=== PATIENT | female | born 1985 | race Caucasian/White ===

== ENCOUNTER 2017-03-07 01:00 | Inpatient (IN) | payer OTHER ==
[2017-03-07 05:05] LABS: Hematocrit 32 % (35-47); Hemoglobin 10.3 g/dl (12.0-16.0); Mean Corpuscular HGB Conc 32 g/dl (31-36); Mean Corpuscular Hemoglobin 27 pg (27-31); Mean Corpuscular Volume 85 fL (80-97); Mean Platelet Volume 9 um3 (7.4-10.4); Red Blood Count 3.76 10^6/ul (4.0-5.4); Red Cell Distribution Width 15 % (10.5-15); White Blood Count 12.9 10^3/ul (3.5-10.8)
[2017-03-07] MEDS ORDERED: fentaNYL* 50 MCG/ML 2 ML VIAL (100 MCG VIAL) ONE (05:11)
[2017-03-07] MEDS ORDERED: Sodium Citrate/Citric Acid* 15 ML UDC ONE (05:33)
[2017-03-07] MEDS ORDERED: Famotidine TAB* 20 MG PO PRN (05:39)
[2017-03-07] MEDS ORDERED: Sodium Citrate/Citric Acid* 15 ML UDC PO PRN (05:39)
[2017-03-07] MEDS ORDERED: Phenylephrine IV* 40 MCG/ML 10 ML SYRINGE IV PUSH PRN ×2 (05:39)
[2017-03-07] MEDS ORDERED: Acetaminophen TAB* 325 MG PO PRN (07:49)
[2017-03-07] MEDS ORDERED: Glycerin ADULT SUPP PR PRN (07:49)
[2017-03-07] MEDS ORDERED: Simethicone CHEW TAB* 80 MG PO SCH (08:30)
[2017-03-07] MEDS: Ibuprofen TAB* 600 MG PO PRN ×2 (08:55→21:04)
[2017-03-07] MEDS: Dibucaine 1% 28.35 GM TUBE PR PRN (08:56)
[2017-03-07] MEDS: Witch Hazel PAD* JAR TOPICAL PRN (08:56)
[2017-03-07] MEDS: Docusate CAP* 100 MG PO SCH ×2 (15:02→21:05)
[2017-03-08] MEDS: Docusate CAP* 100 MG PO SCH ×3 (00:24→14:13)
[2017-03-08] MEDS: Ibuprofen TAB* 600 MG PO PRN ×2 (03:39→14:11)
[2017-03-08] MEDS: Cetirizine* 10 MG TAB PO SCH ×2 (06:44→09:02)
[2017-03-08 07:28] LABS: Hematocrit 26 % (35-47); Hemoglobin 8.8 g/dl (12.0-16.0); Mean Corpuscular HGB Conc 34 g/dl (31-36); Mean Corpuscular Hemoglobin 29 pg (27-31); Mean Corpuscular Volume 85 fL (80-97); Mean Platelet Volume 9 um3 (7.4-10.4); Red Blood Count 3.04 10^6/ul (4.0-5.4); Red Cell Distribution Width 15 % (10.5-15); White Blood Count 10.4 10^3/ul (3.5-10.8)
[2017-03-08 08:43] VITALS: BP 93/50
[2017-03-08] MEDS: Witch Hazel PAD* JAR TOPICAL PRN (08:59)
[2017-03-08] MEDS: Dibucaine 1% 28.35 GM TUBE PR PRN (08:59)
[2017-03-08] MEDS ORDERED: Ferrous Gluconate TAB* 324 MG TAB PO SCH (09:00)
== END 2017-03-08 17:06 | disposition home or self-care (01) | DRG 775 ==
LOC: MCHOBOUT 01:00 → MCHOB 01:18
PROVIDERS: ADMIT Midwife; ATTEND Midwife
PROC: 10E0XZZ Delivery of Products of Conception, External Approach (ICD-10-PCS; principal; 2017-03-07)
PROC: 0KQM0ZZ Repair Perineum Muscle, Open Approach (ICD-10-PCS; 2017-03-07)
PROC: 10907ZC Drainage of Amniotic Fluid, Therapeutic from Products of Conception, Via Natural or Artificial Opening (ICD-10-PCS; 2017-03-07)
DX: O99.824 Streptococcus B carrier state complicating childbirth (principal); D64.9 Anemia, unspecified; O77.0 Labor and delivery complicated by meconium in amniotic fluid; O70.1 Second degree perineal laceration during delivery; O90.81 Anemia of the puerperium; Z3A.39 39 weeks gestation of pregnancy; Z37.0 Single live birth
CPT/HCPCS: 36415; 85025; 86850; 86900; 86901; A9270-GY; J3010

== ENCOUNTER 2017-07-24 11:17 | Emergency (ER) | payer BC, OTHER ==
[2017-07-24 11:29] VITALS: BP 130/106
--- NOTE | 2017-07-24 11:47 | UC ---
Complaint Female HPI - HPI Summary HPI Summary: Pt presents with pelvic pain. She tells me that she had an IUD placed 4 days ago and that her OBGYN had a difficult time placing it. She has had an IUD in the past without issues, but had it removed about a 1-1.5 years ago as she desired to become . She was successful in this and gave 4 months ago. Today, she is having LLQ pain "it feels like my ovary" and left lower back pain 05/18 which began abruptly about 45 minutes before her coming to urgent care. She has not had any fevers, chills, N/V/D/C, SOB, chest pain, dysuria, vaginal bleeding or pain, or recent illness. She called her OBGYN and spoke to the steeple jack who suggested it could be from the recent IUD insertion, but should be evaluated today regardless - per pt. - History Of Current Complaint Chief Complaint: UCGU Stated Complaint: PERSONAL Time Seen by Provider: 07/24/17 11:46 Hx Obtained From: Patient, Family/Community Development Manager Onset/Duration: Sudden Onset Timing: Constant Severity Currently: Severe Pain Intensity: 10 Pain Scale Used: 0-10 Numeric Character: Sharp, Cramping Aggravating Factor(s): Movement Alleviating Factor(s): Position, Nothing - Allergies/Home Medications Allergies/Adverse Reactions: Allergies Allergy/AdvReac Type Severity Reaction Status Date / Time Banana Allergy mouth Verified 07/24/17 11:29 swelling Kiwi Extract Allergy mouth and Verified 07/24/17 11:29 throat swelling [place] Flavor Allergy mouth and Verified 07/24/17 11:29 throat swelling Pineapple Allergy mouth Verified 07/24/17 11:29 swelling throat swelling Red Dye Allergy mouth and Verified 07/24/17 11:29 throat swelling [place] Allergy mouth Verified 07/24/17 11:29 swelling throat swelling Tomato Allergy mouth Verified 07/24/17 11:29 swelling and throat swelling Home Medications: Home Medications Albuterol HFA INHALER* [Ventolin HFA Inhaler*] 2 puff INH Q4H PRN 07/24/17 [ History Confirmed 07/24/17] PMH/Surg Hx/FS Hx/Imm Hx Previously Healthy: Yes - Surgical History Surgical History: None - Family History Known Family History: Negative: Other - LAXITY OF JOINT - Social History Occupation: Employed Full-time Lives: With Family Alcohol Use: Occasionally Substance Use Type: None Smoking Status (MU): Never Smoked Tobacco - Immunization History Most Recent Influenza Vaccination: 2017 Most Recent Pneumonia Vaccination: never Review of Systems Constitutional: Negative Skin: Negative Respiratory: Negative Cardiovascular: Negative Gastrointestinal: Abdominal Pain - LLQ Neurovascular: Negative Musculoskeletal: Other: - Left lower back pain Neurological: Negative Psychological: Negative All Other Systems Reviewed And Are Negative: Yes Physical Exam Triage Information Reviewed: Yes Appearance: Pain Distress, Other: - Lying on her side in the position, clutching her lower abdomen. Vital Signs: Initial Vital Signs Temp 98.3 F 07/24/17 11:26 Pulse 97 07/24/17 11:26 Resp 24 07/24/17 11:26 BP 130/106 07/24/17 11:26 Pulse Ox 100 07/24/17 11:26 Vital Signs Reviewed: Yes Respiratory: Positive: Chest non-tender, Lungs clear, Normal breath sounds, No respiratory distress, No accessory muscle use Cardiovascular: Positive: No Murmur, Pulses Normal, Brisk Capillary Refill, Tachycardia Abdomen Description: Positive: No Organomegaly, Guarding - LLQ, Other: - TTP LLQ. No mass is appreciated. No ron's sign.. Negative: CVA Tenderness (R), CVA Tenderness (L), Distended, McBurney's Point Tenderness, Peritoneal Signs, Pulsatile Mass Bowel Sounds: Positive: Present Skin: Negative: rashes - Additional Comments She was placed in the lithotomy position in preparation for a vaginal exam - this caused her significant pain. Patient did not think she could tolerate a vaginal exam due to pain. Complaint Female Dx - Course Course Of Treatment: Abrupt onset LLQ pain, tachycardia, and elevated BP. I presented the case to Dr. Roblero and we agreed that she needs to be evaluated in the ED. I discussed this with the patient and her , they agreed to be transferred by ambulance. - Differential Dx/Diagnosis Differential Diagnosis/HQI/PQRI: Cervicitis, Ectopic, Ovarian Cyst, Ovarian Torsion, Pelvic Inflammatory Disease, Renal Colic, Retained Foreign Body, Tubo- ovarian Abscess, Ureteral Stone, Urinary Tract Infection Provider Diagnoses: LLQ pain. Elevated blood pressure. Tachycardia Discharge - Discharge Plan Condition: Stable Disposition: [facility]ANS [facility] Referrals: Rojas Keene MD [Primary Care Provider] - Additional Instructions[place] [facility] [place]
[2017-07-24] MEDS ORDERED: HYDROcodone/ACETAMIN 5-325 MG* 1 TAB PO ONE (11:58)
--- OUTSIDE RECORDS SUMMARY | 2017-07-26 10:14 | XMS REPORT ---
:1985 External Reference #:[id number] Author Organization [facility] Address [address] [place] [address] Phone [phone] Care Team Providers Name Role Phone Charanjit Grant M.D. Primary Care Physician Unavailable Payers Type Date Identification Numbers Payment Provider Subscriber Commercial Expires: Policy Number: [employer] Ppo Jie 2017 [id number] [facility] PayID: [id number] [address] [place] [address] Medigap Part B Policy Number: Excellus BC/BS Jie Lemossita [id number] [facility] PayID: [id number] [address] [address] [place] [address] Problems Date Description Provider Status Onset: 08/12/2016 Multigravida Anila Tracy NP Resolved Resolved: 03/07/2017 Family History Date Family Member(s) Problem(s) Comments Father A&W Mother A&W Children 3 First Son A&W Second Son A&W Third Son A&W First Brother Crohn's Disease Second Brother A&W First Sister A&W Second Sister A&W Paternal Grandfather due to Old Age () Paternal Grandmother due to Lung Cancer () Maternal Grandfather due to Old Age () Maternal Grandmother due to Old Age () Social History Type Date Description Comments Education Highest level completed, Bachelor's Degree Marital Status Lives With Spouse Lives With Sons Pets 2 dogs 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 Cigarette Use Never Smoked Cigarettes ETOH Use Occasionally consumes alcohol Smoking Patient has never smoked Recreational Drug Use Denies Drug Use Daily Caffeine occ coffee Exercise Type/Frequency Exercises regularly Seat Belt/Car Seat Always uses seat belt Currently Active Patient is currently sexually active Contraceptive Methods None STD's No STD History Allergies, Adverse Reactions, Alerts Date Description Reaction Status Severity Comments 10/13/2016 NKDA active 04/27/2016 Red Dye active Medications Medication Date Status Form Strength Qnty SIG Indications Ordering Provider Mirena (52 07/21/ Active IUD 20mcg/24H Phaelon MG) 2016 Adwoa Keene MD -12 00/ Active Unknown 0000 Albuterol / Active Unknown Sulfate 0000 Zyrtec / Active Tablets 10mg 1 by mouth Unknown Allergy 0000 every day Lidocaine 02/18/ Hx Ointment 5% 30gm apply to Renay 2016 - affected Garcia, 06/23/ area as [facility] 2016 needed Anusol-HC 02/17/ Hx Suppository 25mg 14uni 1 per rectum Renay 2016 - ts bid Jose, 06/23/ [facility] 2017 Anusol-HC 12/17/ Hx Suppository 25mg 12uni 1 Phillip 2016 - ts suppository Taty, 12/30/ inserted at [facility] 2017 night, 1 in am for maximum of 2 weeks Terconazole 08/12/ Hx Cream 0.8% 20g use 1 Luis A Ceja 2016 - vaginal Gelber, 09/08/ applicator Bashir 2017 every night at bedtime x 3 days 00/00/ Hx Tablets 28-0.8mg 1 by mouth Unknown Vitamins 0000 - every day. 06/23/ please 2017 substitute any vitamin with 100-300 mcg dha covered by insurance Claritin 00/00/ Hx Unknown 0000 - 2016 Iron (Ferrous /00/ Hx Unknown Gluconate) 0000 - 2016 Nasal Allergy 00/00/ Hx Unknown 24 Hour 0000 - 2016 Immunizations CPT Code Status Date Vaccine Lot # [id number] Given 12/16/2016 Tetnus, Diptheria Toxoids And Acellular Pertussis, [id number] PT > 7Yrs Old Vital Signs Date Vital Result Comment 07/21/2017 BP Systolic 108 mmHg BP Diastolic 72 mmHg Height 66.5 inches 5'6.50" Weight 147.00 lb BMI (Body Mass Index) 23.4 kg/m2 3 Parity 3 06/23/2017 BP Systolic 108 mmHg BP Diastolic 64 mmHg Height 66.50 inches 5'6.50" Weight 151.00 lb BMI (Body Mass Index) 24.0 kg/m2 Last Menstrual Period [id number] 3 Parity 3 08/12/2016 BP Systolic 106 mmHg BP Diastolic 64 mmHg Height 66.50 inches 5'6.50" Weight 154.00 lb BMI (Body Mass Index) 24.5 kg/m2 Last Menstrual Period [id number] 3 Parity 2 04/27/2016 BP Systolic 110 mmHg BP Diastolic 62 mmHg Height 66.50 inches 5'6.50" Weight 146.00 lb BMI (Body Mass Index) 23.2 kg/m2 Last Menstrual Period [id number] 2 Parity 2 Results Test Date Test Result H/L Range Note Laboratory test 02/10/2017 Genital For GRP B SEE RESULT BELOW 1 finding Strep Only Laboratory test 12/16/2016 Glucose 1 HR Post 110 mg/dL 70-160 2 finding Prandial CBC With No Diff 12/16/2016 White Blood Count 8.8 10^3/uL 3.5-10.8 Red Blood Count 3.16 10^6/uL Low 4.0-5.4 Hemoglobin 9.9 g/dL Low 12.0-16.0 Hematocrit 30 % Low 35-47 Mean Corpuscular Volume 93 fL 80-97 Mean Corpuscular Hemoglobin 31 pg 27-31 Mean Corpuscular HGB Conc 34 g/dL 31-36 Red Cell Distribution Width 13 % 10.5-15 Platelet Count 245 10^3/uL 150-450 Mean Platelet Volume 9 um3 7.4-10.4 GC/Chlamydia Dna Probe 08/12/2016 Chlamydia trachomatis Rna Negative Negative Neisseria gonorrhoeae (GC) Rna Negative Negative PNL No Urine 08/12/2016 Rubella Screen Immune IU/mL Immune 3 Hemoglobin A1c 4.5 % Less than 6.0 4 Hepatitis B Surface Ag Nonreactive Nonreactive 5 Syphillis Igg W/Reflex RPR Nonreactive Nonreactive 6 CBC With No Diff 08/12/2016 White Blood Count 6.5 10^3/uL 3.5-10.8 Red Blood Count 3.73 10^6/uL Low 4.0-5.4 Hemoglobin 11.9 g/dL Low 12.0-16.0 Hematocrit 35 % 35-47 Mean Corpuscular Volume 94 fL 80-97 Mean Corpuscular Hemoglobin 32 pg High 27-31 Mean Corpuscular HGB Conc 34 g/dL 31-36 Red Cell Distribution Width 13 % 10.5-15 Platelet Count 293 10^3/uL 150-450 Mean Platelet Volume 8 um3 7.4-10.4 Type And Screen 08/12/2016 Patient Blood Type O Positive Antibody Screen NEGATIVE HIV 1/2 AB Evaluation 08/12/2016 HIV 1 2 Antibody Nonreactive Nonreactive 7 Lead 08/12/2016 Lead <1.0 g/dL 0.0-4.9 8 Urine Culture And 08/12/2016 Urine Culture SEE RESULT BELOW 9 Sensitivities Laboratory test 04/27/2016 Cytology SEE RESULT BELOW 10 finding Human Papilloma Virus Rna Negative Negative 11 1 SEE RESULT BELOW Name: JIE MANUEL : [address]: Tiara Garcia CNM Acct: [id number] Unit: [id number] AGE: 31 Location: [facility] Re02/10/17 SEX: F Status: REG REF SPEC: [id number] VÍCTOR: 02/10/[address]: Tiara Garcia CNM REQ: [id number] RECD: 02/10/17 STATUS: COMP _ SOURCE: CER/VAG/RE SPDESC: ORDERED: Grp B Strp Scrn COMMENTS: [id number] QUERIES: Is Patient Penicillin Allergic? N Is patient penicillin allergic and/or sensitivities needed? N Provider Requisition # [id number] Procedure Result Reported Site Group B Strep Culture Screen Final 02/12/17- 1452 ML Group B Strep Screen Negative Organism 1 STREP PYOGENES (GRP A) * ML - MAIN LAB ([facility]) . END OF REPORT * ML=Testing performed at Main Lab DEPARTMENT OF PATHOLOGY, [address] [place] [address] Farhat Valentin M.D. Director [facility] # [id number] 2 [id number] 4 Therapeutic target for the treatment of diabetes Mellitus patients is <7% HBA1C, and in selective patients <6.0%.Please refer to [place] [employer] Association Diabetic care guidelines for further information. 5 [id number] 6 Warning: A positive result is not useful for establishing a diagnosis of syphilis. In most situations, such a result may reflect a prior treated infection; a negative result can exclude a diagnosis of syphilis except for incubating or early primary disease. 7 It is recognized that currently available assays for the detection of antibodies to HIV-1 and/or HIV-2 may not detect all infected individuals. HIV antibodies may be undetectable in some stages of the infection and in some clinical conditions. The performance of this assay has not been established for populations of infants or children. Assayed by Chemiluminescence Microparticle Immunoassay on the Siemens Advia Centaur CP. Values obtained with different methods or kits cannot be used interchangeably.The diagnostic specificity of the ADVIA Centaur 1/O/2 Enhanced assay in the low risk population was 99.90% (6052/6058) with a 95% confidence interval of 99.78 to 99.96%. 8 ADDITIONAL INFORMATION Testing performed by Inductively Coupled Plasma-Mass Spectrometry (ICP-MS). This test was developed and its performance characteristics determined by [facility] in a manner consistent with CLIA requirements. This test has not been cleared or approved by the U.S. Food and Drug Administration. 9 SEE RESULT BELOW Name: RICK MANUELINA : [address]: Anila Tracy NP Acct: [id number] Unit: [id number] AGE: 31 Location: [facility] Re08/12/16 SEX: F Status: REG REF SPEC: [id number] VÍCTOR: 08/12/161007 SUBM DR: Anila Tracy NP REQ: [id number] RECD: 08/12/16 STATUS: COMP _ SOURCE: URINE SPDESC: ORDERED: Urine Culture COMMENTS: [id number] Urine Source: Random Procedure Result Reported Site Urine Culture Final 08/13/16- 1602 ML No Growth (<1,000 CFU/mL) * ML - MAIN LAB ([facility]) . END OF REPORT * ML=Testing performed at Main Lab DEPARTMENT OF PATHOLOGY, [address] [place] [address] Farhat Valentin M.D. Director [facility] # [id number] 10 SEE RESULT BELOW Name: JIE MANUEL : [address]: Anila Tracy NP Acct: [id number] Unit: [id number] AGE: 30 Location: [facility] Re04/27/16 SEX: F Status: REG REF SPEC: [id number] VÍCTOR: 04/27/16-[address]: Anila Tracy NP REQ: [id number] RECD: 04/27/16 STATUS: SOUT _ ORDERED: IMAGE ANALYSIS, HPV/Thin Prep COMMENTS: [id number] FINAL DIAGNOSIS Negative for Intraepithelial lesion or Malignancy A. Ectocervical/Endocervical Specimen Adequacy: Satisfactory of evaluation Transformation zone component identified Patient Information: HPV: High risk HPV RNA testing regardless of pap results. Actual Specimen Date: 04/27/16 Last Menstrual Date: 04/04/16 ?: N Date Time Test Result Flag (u) Normal Range 04/27/16 1313 HPV RNA Negative Negative The high-risk HPV types detected by the assay include: 16, 18, 31, 33, 35, 39, 45, 51, 52, 56, 58, 59, 66, and 68. Signed (signature on file) DANNY Morley(ASCP) 04/28 1353 This Pap test was evaluated with the assistance of the Yaolan.comPrep Test Imaging System. Due to cytologic findings at the day care home mother microscope, comprehensive manual rescreening by a Bass Guitar Teacher may be required. The Pap Smear is a screening test designed to aid in the detection of premalignant and malignant conditions of the uterine cervix. It is not a diagnostic procedure and should not be used as the sole means of detecting cervical cancer. Both false- positive and false- negative reports do occur. Depending on your risk status, a Pap smear should be obtained and evaluated every 1-3 years. END OF REPORT * ML=Testing performed at Main Lab DEPARTMENT OF PATHOLOGY, [address] [place] [address] Farhat Valentin M.D. Director [facility] # [id number] 11 The high-risk HPV types detected by the assay include: 16, 18, 31, 33, 35, 39, 45, 51, 52, 56, 58, 59, 66, and 68. Procedures Date CPT Code Description Status 07/21/2017 64234 Insert Intrauterine Device Completed 03/07/2017 12352 Obstetric Care Routine Completed 02/10/2017 55072 Echography Uterus Limited Completed 10/23/2016 34507 Echography Uterus Complete Completed 08/12/2016 62395 OB Ultrasound First Trimester Completed Encounters Type Date Location Provider CPT E/M Dx Office Visit 06/23/2017 9:00a [facility] JAMES Christian [address] Z01.419 Office Visit 04/27/2016 1:00p [facility] [place] [address] Z01.419 Plan of Care No Information Available
== END 2017-07-24 12:28 | disposition short-term general hospital (02) ==
LOC: UCEAST 11:17
DX: R10.32 Left lower quadrant pain (principal); R03.0 Elevated blood-pressure reading, without diagnosis of hypertension; R00.0 Tachycardia, unspecified
CPT/HCPCS: 99213; G0463

== ENCOUNTER → 2017-07-24 12:45 | Emergency (ER) | payer BC ==
[~2017-07-24 12:45] MED LIST: Acetaminophen TAB* 325 MG PO ONE; Amoxicillin PO (*) 250 MG CAP PO ONE; Amoxicillin/Clavulanate TAB* 500 MG PO ONE; Ketorolac INJ* 30 MG/ML 1 ML VIAL IV PUSH ONE; Morphine INJ* 4 MG/ML 1 ML CARPUJECT IV ONE; Naproxen TAB* 250 MG ONE; Naproxen TAB* 250 MG PO ONE; Ondansetron INJ* 2 MG/ML VIAL IV ONE; Tamsulosin CAP* 0.4 MG PO ONE; oxyCODONE/Acetamin 5/325 MG* TAB PO ONE
--- NOTE | 2017-07-24 13:38 | ED ---
Abdominal Pain/Female - HPI Summary HPI Summary: Pt here w/ abrupt onset low back pain B/L but worse on Lt, ab pain B/L but worse on Lt and urethral pain - nausea intermittently - no vomiting. Had IUD placed 4 days ago. Per pt, OBGYN had difficulty placing IUD and required multiple attempts before successful placement. She's had pain that feels like "menstrual cramping" since and has been taking 400mg ibuprofen each day which has helped but did not help today. She's had normal vaginal d/c for her since - no bleeding. Mild discomfort with urination and urge w/ minimal output. H/o UTI once in the past - only similar sx are urethral pain, everything else is different. This morning, pain feels similar in quality and location to what she 's been feeling since IUD placement but much worse intensity. NOTE: Pt dx'd w/ group A strep vaginally around time of delivering child - she currently 4 months post . Has not received anbx as per OBGYN it was not necessary - monitoring was the recommended course of action. Again, no fever but had chills today. She is . - History of Current Complaint Chief Complaint: EDAbdPain Stated Complaint: ABD PAIN SENT FROM [facility] Time Seen by Provider: 07/24/17 13:19 Hx Obtained From: Patient, Family/Supervisor [employer] - Pain Intensity: 9 Allergies/Adverse Reactions: Allergies Allergy/AdvReac Type Severity Reaction Status Date / Time Banana Allergy mouth Verified 07/24/17 11:29 swelling Kiwi Extract Allergy mouth and Verified 07/24/17 11:29 throat swelling [place] Flavor Allergy mouth and Verified 07/24/17 11:29 throat swelling Pineapple Allergy mouth Verified 07/24/17 11:29 swelling throat swelling Red Dye Allergy mouth and Verified 07/24/17 11:29 throat swelling [place] Allergy mouth Verified 07/24/17 11:29 swelling throat swelling Tomato Allergy mouth Verified 07/24/17 11:29 swelling and throat swelling Home Medications: Home Medications Cetirizine* [ZyrTEC 10 MG TAB*] 1 tab PO BEDTIME 07/24/17 [History Confirmed ] PMH/Surg Hx/FS Hx/Imm Hx Previously Healthy: Yes Endocrine/Hematology History: Reports: Hx Blood Disorders - ITP Respiratory History: Reports: Hx Asthma History: Reports: Other Problems/Disorders - IUD placed (mirena) on 2016 by ? - Immunization History Immunizations Up to Date: Yes Infectious Disease History: No Infectious Disease History: Denies: Traveled Outside the [place] in Last 30 Days - Family History Known Family History: Positive: Other - recent h/o family members w/ strep - rectally, penile and skin - Social History Lives: With Family Alcohol Use: Occasionally Alcohol Amount: last night 1/2 bottle of hard cider Hx Substance Use: No Substance Use Type: Reports: None Hx Tobacco Use: No Smoking Status (MU): Never Smoked Tobacco Review of Systems Positive: Chills. Negative: Fever Cardiovascular: Negative Negative: Palpitations, Chest Pain Respiratory: Negative Negative: Shortness Of Breath, Cough Positive: Abdominal Pain, Nausea, Other - has had constipation . Negative: Vomiting, Diarrhea Positive: see HPI Musculoskeletal: Negative Skin: Negative Negative: Bruising Neurological: Negative Positive: Anxious - from pain All Other Systems Reviewed And Are Negative: Yes Physical Exam Triage Information Reviewed: Yes Vital Signs On Initial Exam: Initial Vitals BP 103/62 07/24/17 12:50 Vital Signs Reviewed: Yes Appearance: Positive: Well-Nourished, Pain Distress - pt is writhing in bed in pain Skin: Positive: Warm, Dry Head/Face: Positive: Normal Head/Face Inspection Eyes: Positive: Normal, EOMI, Conjunctiva Clear - anicteric sclera ENT: Positive: Hearing grossly normal, Pharynx normal - oral mucosa somewhat dry Neck: Positive: Supple, Nontender Respiratory/Lung Sounds: Positive: Clear to Auscultation, Breath Sounds Present. Negative: Rales, Rhonchi, Wheezes Cardiovascular: Positive: Normal, RRR, S1, S2. Negative: Murmur, Rub Abdomen Description: Positive: No Organomegaly, Soft. Negative: CVA Tenderness (R), CVA Tenderness (L) Bowel Sounds: Positive: Present Pelvic Exam: Positive: external exam normal, discharge - mucous w/ yellow streaking, tender w/ cervical motion - very mild, tender adnexa - Lt, mild - no fullness, tender uterus - mild, other - cervix has 2 pinpoint wounds that correlate with ring clamp used for IUD placement - no active bleeding, cervix is non-friable, os is parous; 2 blunt strings observed protruding from os. Negative: no masses, active bleeding, blood Musculoskeletal: Positive: Normal, Strength/ROM Intact Neurological: Positive: Normal, Sensory/Motor Intact, Alert, Oriented to Person Place, Time, CN Intact II-III Psychiatric: Positive: Normal - concerned but able to communicate her sx and concerns in a calm fashion Diagnostics - Vital Signs Vital Signs Temp Pulse Resp BP Pulse Ox 07/24/17 13:00 98.9 F 97 16 116/83 100 07/24/17 12:51 94 100 07/24/17 12:50 103/62 - Laboratory Result Diagrams: 07/24/17 13:55 07/24/17 13:55 Lab Statement: Any lab studies that have been ordered have been reviewed, and results considered in the medical decision making process. Re-Evaluation - Re-Evaluation First Eval Change: Improved - pain improved w/ IV morphine then worse after TVUS - ordered additional morphine Second Eval Change: Improved - pain improved after second dose of morphine but still fairly uncomfortable - ordered toradol after labs and imaging had returned. Also ordered IV fluids as her BP had lowered (most likely d/t narocotic pain med and hypovolemia as she's been NPO since here and is at home) Abdominal Pain Fem Course/Dx - Course Course Of Treatment: Pt presents w/ acute on low grade B/L back pain (worse on Lt) and B/L ab pain (worse on Lt) today. Has had pain since IUD placement on Wednesday (see HPI for details). After reviewing TVUS report, labs including urine and a pelvic exam it was decided that her pain is most likely an exacerbation of pelvic inflammation from IUD procedure on Wednesday which was undertx'd with NSAID (taking only 400mg a day) and she admits she overdid it with physical activity yesterday " I was exhausted". Woke with morning and worse pain presented which brought her here. Denies fever but does have chills. Labs and pelvic exam are unremarkable for infection however she admits to colonization with group A strep in her vagina. With recent manipulation of her vaginal tissues and mild CMT, will initiate treatment of Group A strep and have her f/u w/ OBGYN. Cx's were ordered as well - she will f/u for results w/ OBGYN but will also receive a call from us if any are positive. Did not further evaluate for urinary tract stones as her urine is w/o blood and nitrates - suspect urethritis is from local irritation during procedure Wednesday. Urine cx 's sent to better assess for infection - results will be called to pt if UTI present and anbx addedd as necessary. Provided w/ education about rest and pain meds provided to reduce pain/make pain tolerable as she heals. She had good pain control before leaving and BP improved s/p IVF. Reviewed danger s/sx of when to return to ED. Pt and agree w/ plan. She will call OBGYN Wednesday to schedule f/u. - Diagnoses Provider Diagnoses: Pelvic pain - Provider Notifications Discussed Care Of Patient With: Reji Penaloza Discharge - Discharge Plan Condition: Stable Disposition: HOME Prescriptions: Amoxicillin PO (*) [Amoxicillin 500 MG CAP*] 500 mg PO TID #20 cap Naproxen TAB* [Naprosyn 250 mg TAB*] 500 mg PO Q12HR PRN #20 tab PRN Reason: Pain oxyCODONE/Acetamin 5/325 MG* [Percocet 5/325 TAB*] 1 tab PO Q6H PRN #20 tab MDD 4 PRN Reason: Pain Patient Education Materials: Pelvic Pain in Women (ED) Referrals: Charanjit Grant MD [Primary Care Provider] - Amanda Live MD [Medical Doctor] - Additional Instructions: You appear to have pelvic pain, most likely due to your recent IUD placement. You may take NSAID's as directed and additional narcotic pain medication has been sent in the event the naproxen does not help your pain. Additionally, you may try hot bathes, warm compresses and pelvic rest until cleared by OBGYN. It is advised that you also rest in general and stay hydrated. An antibiotic was also prescribed as you have reported a positive history of group A strep in your vaginal area. For all of your medications that were prescribed to the pharmacy, please make sure they are dye-free to prevent you from allergic reaction. It was typed on your prescription request but please double check to be safe. It is important that you follow-up with your OBGYN early this week. Call Wednesday to schedule an appointment for Wednesday. *If in the meantime you develop fever, chills, vomiting, diarrhea, hard abdomen , worsening of pain, new vaginal discharge/bleeding, return to ED
[2017-07-24 14:01] LABS: Urine Bacteria 1+ (Absent); Urine Bilirubin Negative (Negative); Urine Glucose Negative (Negative); Urine Nitrite Negative (Negative)
[2017-07-24 14:11] LABS: Hematocrit 36 % (35-47); Hemoglobin 12.3 g/dl (12.0-16.0); Mean Corpuscular HGB Conc 34 g/dl (31-36); Mean Corpuscular Hemoglobin 31 pg (27-31); Mean Corpuscular Volume 90 fL (80-97); Mean Platelet Volume 8 um3 (7.4-10.4); Red Blood Count 3.97 10^6/ul (4.0-5.4); Red Cell Distribution Width 13 % (10.5-15); White Blood Count 5.8 10^3/ul (3.5-10.8)
[2017-07-24 14:29] LABS: ALT 10 U/L (7-52); AST 16 U/L (13-39); Albumin 4.5 g/dL (3.2-5.2); Alkaline Phosphatase 73 U/L (34-104); Anion Gap 10 mmol/L (2-11); BUN/Creatinine Ratio 16.2 (8-20); Blood Urea Nitrogen 12 mg/dL (6-24); C Reactive Protein 17.17 mg/L (< 5.00); CO2 Carbon Dioxide 22 mmol/L (22-32); Calcium 9.5 mg/dL (8.6-10.3); Chloride 108 mmol/L (101-111); EGFR African American 116.2 (>60); EGFR Non-African American 90.4 (>60); Globulin 3.1 g/dL (2-4); Glucose 86 mg/dL (70-100); Lipase 42 U/L (11.0-82.0); Potassium 3.5 mmol/L (3.5-5.0); Sodium 140 mmol/L (133-145); Total Protein 7.6 g/dL (6.4-8.9)
--- NOTE | 2017-07-24 14:43 | RAD ---
INDICATION: Abdominal pain. Recent IUD placement COMPARISON: None TECHNIQUE: Longitudinal and transverse transvaginal scans of the pelvis were obtained. FINDINGS: Uterus: The uterus is normal in size. There are no focal masses. The uterus measures 8.1 x 3.6 x 5.5 cm. Endometrial thickness: The endometrial thickness is measured at 0.6 cm. There is an IUD in expected position.. Free fluid: There is no significant free fluid . Ovaries: The ovaries are normal in size. The right ovary measures 2.9 x 3.4 x 2.3 cm. The left ovary measures 1.7 x 2.6 x 1.9 cm. There are multiple follicles bilaterally with the largest follicles in the 1-5-1.8 cm range. Doppler interrogation demonstrates flow to each ovary. Other: None IMPRESSION: IUD IN EXPECTED POSITION. SMALL FOLLICLES
[2017-07-24] MEDS: NS 0.9% 1000 ML* 2,000 ML IV ONE (15:44)
--- NOTE | 2017-07-24 21:13 | RAD ---
EDITED FOR CHARGES INDICATION: Left flank pain. COMPARISON: Pelvic sonogram July 24, 2017 TECHNIQUE: Axial source images were obtained from the hemidiaphragms to the symphysis pubis following administration of oral contrast only. Coronal and sagittal reconstructed images were acquired. Lung bases: The lung bases are clear. Liver: The noncontrast CT appearance the liver is normal. Gallbladder: There are no calcified gallstones. There is no evidence of wall thickening or pericholecystic fluid. Spleen: The spleen is at the upper limits of normal in size. There are no masses on noncontrast evaluation. Pancreas: Negative noncontrast CT appearance of the pancreas. No ductal dilatation. Adrenal glands: There is no evidence of adrenal mass. Kidneys: Normal noncontrast CT appearance of the right kidney. Moderate left- sided hydronephrosis with left-sided perinephric stranding left-sided hydroureter traced to a 3 mm calculus at the left UVJ. No other calcifications of urinary significance. Adenopathy: There is no evidence of adenopathy by size criteria. Fluid collections: There are no free or localized fluid collections. Vessels:There are no significant atherosclerotic changes involving the aorta. There is no focal aneurysm. The iliac vessels are normal in caliber. The IVC appears normal. GI tract: There are no acute CT bowel findings. There is no obstruction. The stomach and small bowel appear normal. The lower GI tract is normal. The cecum, ileocecal valve, and terminal ileum appear normal. The appendix is visualized and appear normal. Pelvic organs: The uterus and adnexa appear normal incidental note is made of an IUD Bladder: There are no bladder masses. Abdominal and pelvic soft tissues: The extraperitoneal abdominal and pelvic soft tissues appear normal.. Osseous structures: There are no acute osseous findings. Other: None IMPRESSION: 3 MM LEFT UVJ CALCULUS WITH MODERATE OBSTRUCTIVE FINDINGS. MTDD
--- NOTE | 2017-07-24 21:17 | PN ---
Progress Note - Progress Note Date of Service: 07/24/17 Note: patient signed out to by Shavonne hnanah pending CT CT: IMPRESSION: 3 MM LEFT UVJ CALCULUS WITH MODERATE OBSTRUCTIVE FINDINGS. explained results to patient. will discharge with flomax as blood pressure is low at moment. pain medication order and urology follow up given. Patient understand and agrees with plan Diagnosis: left urethral stone Condition: stable Disposition: home
[2017-07-24 22:21] VITALS: BP 107/63
--- NOTE | 2017-07-26 09:01 | PN ---
Progress Note - Progress Note Date of Service: 07/24/17 Note: Patient was diagnosed with a left urethral stone. Seen for complaints of pelvic pain and left ovary pain. Vaginal culture received showing she was positive for gardnerella and has not been treated. Patient was called at 9:00am and did not answer. A message was left on voicemail. Luis Angel was sent to pharmacy [facility]. Will continue to attempt to call patient and get a hold of her today, or wait for a return call. Letter will be sent to her house, luis angel at pharmacy. No further action required at this time.
--- NOTE | 2017-07-27 09:09 | PN ---
Progress Note - Progress Note Date of Service: 07/24/17 Note: urine preliminary culture results obtained and showed 10-25,000 of staph lugdenesis which is clinically insignificant amount of growth. placed on amoxicillin at d/c. however no treatment of urine culture results required at this time. no further action required.
== END | disposition home or self-care (01) ==
LOC: ED 12:45
DX: R10.2 Pelvic and perineal pain (principal); N20.1 Calculus of ureter; R10.9 Unspecified abdominal pain; R11.0 Nausea
CPT/HCPCS: 36415; 74176; 74177; 76830; 80053; 81003; 81015; 83605; 83690; 84702; 85025; 85730; 86140; 86850; 86900; 86901; 87040; 87070; 87077; 87086; 87186; 87480; 87491; 87510; 87591; 87661; 96361; 96374; 96375; 96376; 99284; A9270-GY; J1885; J2270; J2405

== ENCOUNTER 2019-01-26 18:33 | Emergency (ER) | payer OTHER ==
[2019-01-26] MEDS ORDERED: NS 0.9% 1000 ML** 1,000 ML IV ONE (19:10)
--- NOTE | 2019-01-26 19:47 | ED ---
- HPI Summary HPI Summary: 33 year old female SUSAN Aug 14 presents with vaginal bleeding today. She states that she was packing for a flight when she states she started to have some cramping and felt some vaginal bleeding. States that it started with spotting and the became heavier. She denies passing any clots. States she keeps getting rushes of blood. She admits to occasional crampy abdominal pain greatest on the right side. No nausea vomiting. No fevers. No urinary symptoms. no dizziness or palpitations. 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 - History of Current Complaint Chief Complaint: EDOBProblems Stated Complaint: 11 WKS CRAMPING AND BLEEDING PER PT Time Seen by Provider: 01/26/19 19:08 Pain Intensity: 5 - Assessment SAB: 0 IEA: 0 - Additional Pertinent History Maternal Blood Type and Rh: O Positive - Allergies/Home Medications Allergies/Adverse Reactions: Allergies Allergy/AdvReac Type Severity Reaction Status Date / Time banana Allergy Swelling Verified 01/26/19 20:11 kiwi Allergy Swelling Verified 01/26/19 20:10 harper Allergy Swelling Verified 01/26/19 20:10 pineapple Allergy Swelling Verified 01/26/19 20:11 red dye Allergy Swelling Verified 01/26/19 20:10 strawberry Allergy Swelling Verified 01/26/19 20:10 tomato Allergy Swelling Verified 01/26/19 20:10 PMH/Surg Hx/FS Hx/Imm Hx Endocrine/Hematology History: Reports: Hx Blood Disorders - ITP Respiratory History: Reports: Hx Asthma History: Reports: Other Problems/Disorders - IUD placed (mirena) on 2016 by ? Infectious Disease History: No Infectious Disease History: Denies: Traveled Outside the [place] in Last 30 Days - Family History Known Family History: Positive: Other - recent h/o family members w/ strep - rectally, penile and skin - Social History Alcohol Use: Occasionally Alcohol Amount: last night 1/2 bottle of hard cider Hx Substance Use: No Substance Use Type: Reports: None Hx Tobacco Use: No Smoking Status (MU): Never Smoked Tobacco Review of Systems Negative: Fever Negative: Chest Pain Negative: Shortness Of Breath Positive: Abdominal Pain, Other - vaginal bleeding. Negative: Vomiting, Nausea All Other Systems Reviewed And Are Negative: Yes Physical Exam - Physical Exam Triage Information Reviewed: Yes Vital Signs Reviewed: Yes Appearance: Positive: Well-Appearing Skin: Positive: Warm, Dry Head/Face: Positive: Normal Head/Face Inspection Eyes: Positive: Normal, Conjunctiva Clear ENT: Positive: Pharynx normal Respiratory/Lung Sounds: Positive: Clear to Auscultation, Breath Sounds Present Cardiovascular: Positive: Normal, RRR Abdomen Description: Positive: Nontender, Soft Bowel Sounds: Positive: Present Musculoskeletal: Positive: Normal Neurological: Positive: Normal Psychiatric: Positive: Normal Diagnostics - Vital Signs Vital Signs Temp Pulse Resp BP Pulse Ox 01/26/19 18:36 98.4 F 110 18 138/97 100 - Laboratory Result Diagrams: 01/26/19 20:06 01/26/19 20:06 Lab Statement: Any lab studies that have been ordered have been reviewed, and results considered in the medical decision making process. - Ultrasound Ultrasound Interpretation Completed By: Radiologist Summary of Ultrasound Findings: IMPRESSION: Normal intrauterine with estimated gestational age of 11 weeks and 5. days. Course/Dx - Course Course Of Treatment: 33 year old female SUSAN Aug 14 presents with vaginal bleeding today. She states that she was packing for a flight when she states she started to have some cramping and felt some vaginal bleeding. States that it started with spotting and the became heavier. She denies passing any clots. States she keeps getting rushes of blood. She admits to occasional crampy abdominal pain greatest on the right side. No nausea vomiting. No fevers. No urinary symptoms. no dizziness or palpitations. 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 On exam nontender abdomen. u/s shows IUP. hcg 100,000. discussed results with patient. told follow up with ob. patient understand and agrees with plan. - Differential Diagnosis/HQI/PQRI: Spontaneous , Threatened , Intrauterine - Diagnoses Provider Diagnoses: Vaginal bleeding during Discharge - Sign-Out/Discharge Documenting (check all that apply): Patient Departure Patient Received Moderate/Deep Sedation with Procedure: No - Discharge Plan Condition: Good Disposition: HOME Patient Education Materials: Threatened Miscarriage (ED) Referrals: Charanjit Grant MD [Primary Care Provider] - Additional Instructions: The education provided is for your information. You may or may not have a miscarriage at this point. avoid sex until bleeding resolves Follow up with OBGYN as will need repeat HCG level drawn to trend Return to ED if develop severe abdominal pain, fever, severe bleeding with symptoms such as lightheadedness or any new or worsening symptoms - Billing Disposition and Condition Condition: GOOD Disposition: Home
[2019-01-26 20:29] LABS: ABS Eosinophils 0.1 10^3/ul (0-0.6); ABS Lymphocytes 2.4 10^3/ul (1.0-4.8); ABS Monocytes 0.4 10^3/ul (0-0.8); Eosinophil % 2.4 %; Hematocrit 33 % (35-47); Hemoglobin 11.9 g/dL (12.0-16.0); Lymphocyte % 40.2 %; Mean Corpuscular HGB Conc 36 g/dL (31-36); Mean Corpuscular Hemoglobin 32 pg (27-31); Mean Corpuscular Volume 90 fL (80-97); Nucleated Red Blood Cells % 0.2; Platelet Count 226 10^3/uL (150-450); Red Blood Count 3.68 10^6 /uL (3.70-4.87); Red Cell Distribution Width 13 % (10-15); White Blood Count 5.9 10^3/uL (3.5-10.8)
[2019-01-26 20:30] LABS: Albumin/Globulin Ratio 1.5 (1-3); BUN/Creatinine Ratio 18.6 (8-20); Calcium 9.1 mg/dL (8.6-10.3); EGFR African American 203.4 (>60); EGFR Non-African American 168.1 (>60); Globulin 2.6 g/dL (2-4); Potassium 3.5 mmol/L (3.5-5.0); Total Bilirubin 0.3 mg/dL (0.2-1.0); Total Protein 6.6 g/dL (6.4-8.9)
[2019-01-26 20:33] LABS: Urine Appearance Clear; Urine Bilirubin Negative (Negative); Urine Blood Negative (Negative); Urine Color Yellow; Urine Glucose Negative (Negative); Urine Ketones Negative (Negative); Urine Nitrite Negative (Negative); Urine Protein Negative (Negative); Urine Specific Gravity 1.009 (1.010-1.030); Urine Urobilinogen Negative (Negative)
[2019-01-26 20:35] LABS: INR 0.91 (0.82-1.09)
[2019-01-26 21:25] VITALS: BP 96/62
== END 2019-01-26 21:20 | disposition home or self-care (01) ==
LOC: ED 18:33
DX: O20.9 Hemorrhage in early pregnancy, unspecified (principal); Z3A.11 11 weeks gestation of pregnancy
CPT/HCPCS: 36415; 76801; 80053; 81003; 84702; 85025; 85610; 86850; 86900; 86901; 96360; 96361; 99283

== ENCOUNTER 2019-08-25 13:06 | Inpatient (IN) | payer OTHER ==
[2019-08-25] MEDS ORDERED: Misoprostol TAB* 100 MCG VAGINAL ONE (14:15)
[2019-08-25] MEDS ORDERED: Albuterol HFA INHALER* 8 gm MDI INH PRN (14:18)
--- NOTE | 2019-08-25 14:26 | HP ---
General Information - Reason for Visit IUP at 41-4/7 here for postdates induction of labor following a 2 minute decel on NST in the office, JER 8.2cm today - General Information Maternal Age: 34 Grav: 4 Para: 3 SAB: 0 IEA: 0 Estimated Due Date: 08/14/19 Determined By: Early Ultrasound Maternal Blood Type and Rh: O Positive - Results this Serology/RPR Result: Non-Reactive Rubella Result: Immune HBsAg Result: Negative HIV Result: Negative GBS Culture Result: Negative Past Medical History Delivery History: See Records Delivery History Comment: 02/2012 7lbs 8oz male. Delivered at the [facility] in [place] 10/2013 7lbs 8oz male. Delivered at a center in [place], [place] 02/2017 8lbs 2oz male. Delivered at [facility] by Bob Novoa CNM Pertinent Past Medical History: See Records Past Medical History Comment: Asthma & Allergies 2010 ITP - resolved with medication Kidney stones Ulcers -resolved Pertinent Family History: Non-Contributory - Antepartal Records Antepartal Records: Reviewed, Complicated by: - AMA, Age 34 at SUSAN, Post dates Review of Systems Constitutional: Comfortable CV Complaint: No Respiratory: Shortness of Breath: No Gastrointestinal: No Nausea/Vomiting, Normal Bowel Movement Genitourinary: No Dysuria, No Bleeding, No Leaking Fluid Musculoskeletal: No Complaint, No Epigastric Pain Neurological: No Headache, No Visual Changes Movement: Normal Exam Allergies/Adverse Reactions: Allergies banana Allergy (Verified 01/26/19 20:11) Swelling coconut Allergy (Verified 07/19/19 10:37) Anaphylatic Shock hazelnut Allergy (Verified 07/19/19 10:37) Anaphylatic Shock kiwi Allergy (Verified 01/26/19 20:10) Swelling harper Allergy (Verified 01/26/19 20:10) Swelling pineapple Allergy (Verified 01/26/19 20:11) Swelling red dye Allergy (Verified 01/26/19 20:10) Swelling strawberry Allergy (Verified 01/26/19 20:10) Swelling tomato Allergy (Verified 01/26/19 20:10) Swelling pecans Allergy (Uncoded 07/19/19 10:37) Anaphylatic Shock BP 125/80 HR 100 T 98.2 RR 18 - Measurements Height: 5 ft 7 in Weight: 198 lb Weight in lbs: 198.916547 Body Mass Index (BMI): 31.0 Pre- Weight: 140 lb Weight Gained This : 58 lbs and 0 ozs Targeted Exam Findings See L&D Outpatient Visit Provider Note for Findings: N/A Estimated Weight: EFW 8-9lbs by Cherry Cervical Exam: 3cm Effacement: 50% Station: -1 Presenting Part: Vertex Membrane Status: Intact Sterile Speculum Exam: Not done Bleeding/Discharge: None EFM Findings - External Monitor Findings Baseline Heart Rate: 125 External Monitor Findings: Accelerations Present, No Pattern of Variable or Late Decelerations, Variability Moderate, Baseline Stable External Monitor Findings Comment: Reactive NST Contractions: None Assessment/Plan - Assessment IUP at 41-5/7 here for postdates induction Reactive NST since arrival at [facility] - Obstetrical Risk Factors Obstetrical Risk Factors: Post-Dates - Plan Plan: Induction Plan Comment: Strong recommendation to proceed with induction of labor given that pt is 41-4/ 7 weeks . Lengthy review of potential risks associated with continued including still , meconium, macrosomia, intolerance of labor, poor placental perfusion, increased risk of long, difficult labor, increased risk of intervention and/or operative delivery. All questions answered. At this time pt and FOB agree to induction. Strong preference to avoid IV pitocin induction if possible. PARQ vaginal misoprostol. Pt and FOB agree. Will initiate induction with close monitoring of status. Anticipate progression to active labor - Date/Time of Admission Date of Admission: 08/25/19 Time of Admission: 14:07
[2019-08-25 16:15] LABS: Urine Benzodiazepine Screen None Detected (None Detect); Urine Opiates Screen None Detected (None Detect)
[2019-08-25] MEDS: Cetirizine* 10 MG TAB PO SCH (17:54)
--- NOTE | 2019-08-25 18:51 | PN ---
Progress Note - Progress Note Date of Service: 08/25/19 Note: S: Pt resting comfortably in rocking chair. Reports some discrete tightening. Mild. Able to speak through most of them. just received his dinner. They would like him to eat before moving on to the next step. She does consent to VE. O: BP 125/80 HR 96 RR 18 T 98.2 FHT 125bpm. Moderate variability. +Accels. No decels Mild UCs q 3-5 min by pt report VE 3-4cm/70%/vtx -1 A: IUP at 41-4/7 in latent labor No evidence of metabolic acidemia P: Recommend amniotomy. Pt and FOB agree once he finishes dinner. Will re-eval in 1 hour or sooner PRN.
--- NOTE | 2019-08-25 20:05 | PN ---
Progress Note - Progress Note Date of Service: 08/25/19 Note: S: Pt agrees to amniotomy at this time O: BP 128/87 HR 92 T 98.8 FHT 140bpm. Moderate variability. +Accels. No decels UCs q 2-5, mild to moderate on palpation VE 3-4/70%/vtx -1, amniotomy to clear fluid A: IUP at 41-4/7 in latent labor No evidence of metabolic acidemia P: Encouraged position changes. Pt hoping for an unmedicated labor. Might be interested in nitrous if intensity feels unmanageable. Continue to monitor maternal/ status closely. Anticipate progression into active labor
--- NOTE | 2019-08-25 21:52 | PN ---
Progress Note - Progress Note Date of Service: 08/25/19 Note: S: Pt requests nitrous oxide. Feeling that UC intensity has increased. O: 133/77 FHT: 135bpm. Moderate variability. +Accels. No decels UCs q 2-3, moderate to firm VE: 4cm/80%/vtx -1, clear fluid A: IUP at 41-4/7 in early active labor No evidence of metabolic acidemia P: Trial nitrous. Pt now thinking she may want an epidural. Agrees to IV placement, fluids and labs. Anesthesia aware that she may request CEI in short order.
[2019-08-25] MEDS ORDERED: Lactated Ringers 1000 ML Bag* 1,000 ML IV SCH (22:00)
[2019-08-25] MEDS ORDERED: OBEPIDURAL* 250 ML EPIDURAL ONE (22:11)
[2019-08-25 22:19] LABS: ABS Basophils 0.1 10^3/ul (0-0.2); ABS Eosinophils 0.2 10^3/ul (0-0.6); ABS Lymphocytes 2.6 10^3/ul (1.0-4.8); ABS Monocytes 0.7 10^3/ul (0-0.8); ABS Neutrophils 7.4 10^3/ul (1.5-7.7); Eosinophil % 1.6 %; Hematocrit 33 % (35-47); Hemoglobin 11.4 g/dL (12.0-16.0); Mean Corpuscular HGB Conc 35 g/dL (31-36); Mean Corpuscular Hemoglobin 32 pg (27-31); Mean Corpuscular Volume 92 fL (80-97); Mean Platelet Volume 9.8 fL (7.4-10.4); Nucleated Red Blood Cells % 0.1; Platelet Count 204 10^3/uL (150-450); Red Blood Count 3.59 10^6 /uL (3.70-4.87); Red Cell Distribution Width 14 % (10-15); White Blood Count 10.9 10^3/uL (3.5-10.8)
--- NOTE | 2019-08-25 23:16 | PN ---
Progress Note - Progress Note Date of Service: 08/25/19 Note: Quick Note: Pt comfortable after CEI placement. Resting in bed. VE: 9cm/100%/vtx 0 station. Anticipate trial of pushing soon.
[2019-08-25] MEDS ORDERED: Sodium Citrate/Citric Acid* 15 ML UDC PO PRN (23:28)
[2019-08-25] MEDS ORDERED: Famotidine TAB* 20 MG PO PRN (23:28)
[2019-08-25] MEDS ORDERED: Oxytocin in LR* 0 UNITS/0 ML BAG IVPB ONE (23:31)
[2019-08-25] MEDS ORDERED: OBEPIDURAL* 250 ML EPIDURAL SCH (23:45)
[2019-08-26] MEDS ORDERED: Witch Hazel PAD* JAR TOPICAL PRN (00:29)
[2019-08-26] MEDS ORDERED: Dibucaine 1% 28.35 GM TUBE PR PRN (00:29)
[2019-08-26] MEDS ORDERED: Acetaminophen TAB* 325 MG PO PRN (00:29)
--- NOTE | 2019-08-26 00:38 | PROCNOTE ---
[facility] OB: Delivery Note - Delivery A Date of : 08/26/19 Time of : 00:03 [place] Sex: Male Score 1 Minute: 8 Score 5 Minutes: 9 Gestational Age in Weeks and Days at Delivery: 41 Weeks and 5 Days Delivery Method: Spontaneous Vaginal Labor: Induced - with misoprostol PV x 1 followed by amniotomy to clear fluid Did Patient attempt ?: N/A, No Previous Amniotic Fluid: Clear Estimated Blood Loss: 250 Anesthesia/Analgesia: CEI for Labor - placed by Dr. Contreras, Nitrous-Labor Delivered By: Bob Novoa - Nursery Level of Nursery: Regular/Bedside - Perineum Perineal Injury: 2nd Degree - repaired in the usual fashion using 3-0 Rapide under local infiltration 1% lidocaine and epidural analgesia. Anatomy restored and good hemostasis achieved. Pt tolerated well Perineal Repair: By Delivering Practioner - Additional Delivery Notes Additional Delivery Notes: Patient arrived from office for postdates induction of labor. 25mcg misoprostol per vagina x 1 led to onset contractions. Amniotomy to clear fluid led to active labor. Length of active phase 3 hours, 29 min. Pushed x 7 min. liveborn male. Slow, controlled delivery of head. Direct OP. Transverse shoulders delivered with strong maternal push. Infant holding a loop of cord in his hands at time of delivery. Infant vigorous with spontaneous cry. HR>110bpm. Delivered to maternal abdomen. Cord clamped x 2 and cut by FOB when pulsations ceased. Spontaneous delivery intact placenta. Membranes complete. Fundus firm to massage with minimal bleeding noted. Repair as above. EBL 250mL. At time of note mother and infant in stable condition. Planning to breast feed.
[2019-08-26] MEDS ORDERED: Lactated Ringers 1000 ML Bag* 1,000 ML IV SCH (01:00)
[2019-08-26] MEDS: Ibuprofen TAB* 600 MG PO SCH ×4 (01:05→19:00)
[2019-08-26] MEDS ORDERED: Lidocaine 1% INJ* 10 MG/ML 30 ML SDV ONE (02:11)
[2019-08-26] MEDS: Fluticasone NASAL SPRAY 50MCG* 16 gm SPRAY BTL BOTH NARES SCH (09:46)
[2019-08-26] MEDS: Cetirizine* 10 MG TAB PO SCH (17:25)
[2019-08-27] MEDS: Ibuprofen TAB* 600 MG PO SCH ×4 (01:00→20:11)
[2019-08-27] MEDS ORDERED: Ferrous Gluconate TAB* 324 MG TAB PO SCH (09:00)
[2019-08-27] MEDS: Fluticasone NASAL SPRAY 50MCG* 16 gm SPRAY BTL BOTH NARES SCH (09:27)
[2019-08-27 11:40] LABS: ABS Eosinophils 0.2 10^3/ul (0-0.6); ABS Lymphocytes 2.8 10^3/ul (1.0-4.8); ABS Monocytes 0.4 10^3/ul (0-0.8); ABS Neutrophils 6.3 10^3/ul (1.5-7.7); Eosinophil % 1.6 %; Hematocrit 32 % (35-47); Hemoglobin 11.1 g/dL (12.0-16.0); Lymphocyte % 29.2 %; Mean Corpuscular HGB Conc 35 g/dL (31-36); Mean Corpuscular Hemoglobin 32 pg (27-31); Mean Corpuscular Volume 93 fL (80-97); Mean Platelet Volume 8.8 fL (7.4-10.4); Nucleated Red Blood Cells % 0.1; Platelet Count 184 10^3/uL (150-450); Red Blood Count 3.45 10^6 /uL (3.70-4.87); Red Cell Distribution Width 14 % (10-15); White Blood Count 9.7 10^3/uL (3.5-10.8)
[2019-08-27] MEDS: Cetirizine* 10 MG TAB PO SCH (20:11)
[2019-08-28] MEDS: Ibuprofen TAB* 600 MG PO SCH ×2 (03:02→10:59)
[2019-08-28 08:47] VITALS: BP 134/71
== END 2019-08-28 11:40 | disposition home or self-care (01) | DRG 807 ==
LOC: MCHOBOUT 13:06 → MCHOB 14:07
PROVIDERS: ADMIT Midwife; ATTEND Midwife
PROC: 10E0XZZ Delivery of Products of Conception, External Approach (ICD-10-PCS; principal; 2019-08-26)
PROC: 0KQM0ZZ Repair Perineum Muscle, Open Approach (ICD-10-PCS; 2019-08-26)
PROC: 3E0P7VZ Introduction of Hormone into Female Reproductive, Via Natural or Artificial Opening (ICD-10-PCS; 2019-08-26)
PROC: 10907ZC Drainage of Amniotic Fluid, Therapeutic from Products of Conception, Via Natural or Artificial Opening (ICD-10-PCS; 2019-08-26)
PROC: 4A1HXCZ Monitoring of Products of Conception, Cardiac Rate, External Approach (ICD-10-PCS; 2019-08-26)
DX: O48.0 Post-term pregnancy (principal); Z37.0 Single live birth; J45.909 Unspecified asthma, uncomplicated; O99.52 Diseases of the respiratory system complicating childbirth; O70.1 Second degree perineal laceration during delivery; Z3A.41 41 weeks gestation of pregnancy; Z91.018 Allergy to other foods
CPT/HCPCS: 36415; 80307; 85025; 86850; 86900; 86901; A9270-GY; S0191

== ENCOUNTER 2021-08-28 09:50 | Observation (INO) ==
[2021-08-28] MEDS ORDERED: Morphine 4 MG/ML VIAL (1 ml) IV ONE ×2 (10:11→16:11)
[2021-08-28] MEDS ORDERED: Ondansetron 4 mg VIAL 2 MG/ML 2 ml VIAL IV ONE (10:11)
[2021-08-28 10:40] LABS: ABS Eosinophils 0.2 10^3/ul (0-0.6); ABS Lymphocytes 1.6 10^3/ul (1.0-4.8); ABS Monocytes 0.2 10^3/ul (0-0.8); ABS Neutrophils 1.5 10^3/ul (1.5-7.7); Eosinophil % 5.7 %; Hematocrit 37 % (35-47); Hemoglobin 12.8 g/dL (12.0-16.0); Mean Corpuscular HGB Conc 35 g/dL (31-36); Mean Corpuscular Hemoglobin 32 pg (27-31); Mean Corpuscular Volume 92 fL (80-97); Mean Platelet Volume 8.1 fL (7.4-10.4); Nucleated Red Blood Cells % 0.1; Platelet Count 384 10^3/uL (150-450); Red Cell Distribution Width 13 % (10-15); White Blood Count 3.6 10^3/uL (3.5-10.8)
[2021-08-28 10:58] LABS: ALT 25 U/L (7-52); AST 19 U/L (13-39); Albumin 5.2 g/dL (3.2-5.2); Albumin/Globulin Ratio 1.7 (1-3); Alkaline Phosphatase 60 U/L (35-149); Anion Gap 9 mmol/L (2-11); Blood Urea Nitrogen 8 mg/dL (6-24); CO2 Carbon Dioxide 24 mmol/L (22-32); Calcium 10.1 mg/dL (8.6-10.3); Chloride 107 mmol/L (101-111); Globulin 3.1 g/dL (2-4); Glucose 104 mg/dL (70-100); Lipase 54 U/L (11.0-82.0); Potassium 3.6 mmol/L (3.5-5.0); Sodium 140 mmol/L (135-145); Total Protein 8.3 g/dL (6.4-8.9); eGFR CKD-EPI 100.3 (>60)
[2021-08-28 11:04] LABS: HCG Pregnancy < 0.60 mIU/mL
[2021-08-28] MEDS ORDERED: Famotidine IV 10 MG/ML 2 ml VIAL (20 mg) IV SLOW PU ONE (12:00)
[2021-08-28] MEDS ORDERED: Al Hydrox/Mg Hydrox/Simet LIQ 30 ML UDC PO ONE (12:19)
[2021-08-28] MEDS ORDERED: Lactated Ringers 1000 ml BAG 1,000 ML IV ONE (16:26)
[2021-08-28] MEDS ORDERED: Acetaminophen IV 1 GM/100ML 100 ML IV PRN (16:31)
[2021-08-28] MEDS ORDERED: Albuterol HFA INHALER 8 gm MDI INH PRN (16:34)
[2021-08-28] MEDS: Lactated Ringers 1000 ml BAG 1,000 ML IV SCH (19:17)
[2021-08-28] MEDS: Ondansetron 4 mg VIAL 2 MG/ML 2 ml VIAL IV PRN (19:29)
[2021-08-28] MEDS: Mometasone 220 MCG MDI INH SCH (21:48)
[2021-08-29] MEDS: Ondansetron 4 mg VIAL 2 MG/ML 2 ml VIAL IV PRN ×2 (04:08→17:16)
[2021-08-29] MEDS: Lactated Ringers 1000 ml BAG 1,000 ML IV SCH (04:14)
[2021-08-29 06:30] LABS: ABS Eosinophils 0.1 10^3/ul (0-0.6); ABS Lymphocytes 1.6 10^3/ul (1.0-4.8); ABS Monocytes 0.2 10^3/ul (0-0.8); ABS Neutrophils 1.6 10^3/ul (1.5-7.7); Eosinophil % 3.5 %; Hematocrit 31 % (35-47); Lymphocyte % 45.2 %; Mean Corpuscular HGB Conc 36 g/dL (31-36); Mean Corpuscular Hemoglobin 33 pg (27-31); Mean Corpuscular Volume 92 fL (80-97); Mean Platelet Volume 8.3 fL (7.4-10.4); Nucleated Red Blood Cells % 0.1; Platelet Count 279 10^3/uL (150-450); Red Blood Count 3.32 10^6 /uL (3.70-4.87); Red Cell Distribution Width 13 % (10-15); White Blood Count 3.6 10^3/uL (3.5-10.8)
[2021-08-29 06:57] LABS: Albumin 4.1 g/dL (3.2-5.2); Albumin/Globulin Ratio 1.7 (1-3); Calcium 8.8 mg/dL (8.6-10.3); Globulin 2.4 g/dL (2-4); Potassium 3.5 mmol/L (3.5-5.0); Total Bilirubin 1.5 mg/dL (0.2-1.0); Total Protein 6.5 g/dL (6.4-8.9); eGFR CKD-EPI 114.2 (>60)
[2021-08-29] MEDS: Fluticasone NASAL SPRAY 50MCG 16 gm SPRAY BTL INTRANASAL SCH (08:46)
[2021-08-29 11:53] LABS: Albumin 4.3 g/dL (3.2-5.2); Albumin/Globulin Ratio 1.8 (1-3); Globulin 2.4 g/dL (2-4); Potassium 3.6 mmol/L (3.5-5.0); Total Bilirubin 2.8 mg/dL (0.2-1.0); Total Protein 6.7 g/dL (6.4-8.9); eGFR CKD-EPI 108.6 (>60)
[2021-08-29] MEDS ORDERED: Buffered Lidocaine 1% SYRIN 1 ml INTRADERM ONE (11:59)
[2021-08-29] MEDS ORDERED: Lactated Ringers 1000 ml BAG 1,000 ML IV SCH ×2 (12:00→19:00)
[2021-08-29] MEDS ORDERED: Midazolam 2 mg/2 ml VIAL 1 mg/ml 2 ml VIAL (2 mg) ONE (13:44)
[2021-08-29] MEDS ORDERED: Propofol 10 MG/ML 20 ML BTL ONE (13:44)
[2021-08-29] MEDS ORDERED: Lidocaine 2% PF 5 ML VIAL ONE (13:44)
[2021-08-29] MEDS ORDERED: fentaNYL 250 mcg/5 ml 50 MCG/ML 5 ml VIAL (250 MCG) ONE (13:44)
[2021-08-29] MEDS ORDERED: Rocuronium 50 mg VIAL 10 mg/ml 5 ml VIAL (50 mg) ONE (13:44)
[2021-08-29] MEDS ORDERED: Indomethacin 50 mg SUPP (NF) PR ONE (14:38)
[2021-08-29] MEDS ORDERED: Ondansetron 4 mg VIAL 2 MG/ML 2 ml VIAL IV PRN (14:39)
[2021-08-29] MEDS ORDERED: Naloxone 0.4 mg VIAL 0.4 mg/ml 1 ml VIAL IV PRN (14:39)
[2021-08-29] MEDS ORDERED: Acetaminophen IV 1 GM/100ML 100 ML IV PRN (14:39)
[2021-08-29] MEDS ORDERED: fentaNYL 100 mcg/2 ml 50 MCG/ML VIAL IV PRN (14:39)
[2021-08-29] MEDS ORDERED: HYDROmorphone 1 MG/1 ML SYRINGE IV PRN (14:39)
[2021-08-29] MEDS ORDERED: DiMENhydriNATE IV 50 mg/ml 1 ml VIAL IV PUSH PRN (14:39)
[2021-08-29] MEDS ORDERED: Benzocaine/Menthol LOZ PO PRN (16:34)
[2021-08-29] MEDS: Mometasone 220 MCG MDI INH SCH (19:40)
[2021-08-30 07:31] VITALS: BP 97/50
[2021-08-30 08:17] LABS: ABS Eosinophils 0.2 10^3/ul (0-0.6); ABS Lymphocytes 1.7 10^3/ul (1.0-4.8); ABS Monocytes 0.2 10^3/ul (0-0.8); ABS Neutrophils 2.4 10^3/ul (1.5-7.7); Hematocrit 29 % (35-47); Hemoglobin 10.5 g/dL (12.0-16.0); Lymphocyte % 37.7 %; Mean Corpuscular HGB Conc 36 g/dL (31-36); Mean Corpuscular Hemoglobin 33 pg (27-31); Mean Corpuscular Volume 92 fL (80-97); Mean Platelet Volume 8.1 fL (7.4-10.4); Platelet Count 290 10^3/uL (150-450); Red Blood Count 3.19 10^6 /uL (3.70-4.87); Red Cell Distribution Width 13 % (10-15); White Blood Count 4.5 10^3/uL (3.5-10.8)
[2021-08-30 08:37] LABS: Albumin 3.9 g/dL (3.2-5.2); Albumin/Globulin Ratio 1.6 (1-3); Calcium 8.7 mg/dL (8.6-10.3); Globulin 2.4 g/dL (2-4); Potassium 3.8 mmol/L (3.5-5.0); Total Bilirubin 0.9 mg/dL (0.2-1.0); Total Protein 6.3 g/dL (6.4-8.9); eGFR CKD-EPI 117.1 (>60)
[2021-08-30] MEDS: Fluticasone NASAL SPRAY 50MCG 16 gm SPRAY BTL INTRANASAL SCH (08:59)
== END 2021-08-30 10:28 | disposition home or self-care (01) ==
LOC: ED 09:50 → SDS 16:37 → SSU 16:37
PROVIDERS: ADMIT Surgery; ATTEND Surgery
PROC: O.GIERC (2021-08-29 14:00)